=== PATIENT | female | born 1965 | race Caucasian/White ===

== ENCOUNTER 2021-03-24 12:40 | Emergency (ER) | payer OTHER ==
[~2021-03-24] VITALS: Ht 160 cm; Wt 90.7 kg
[2021-03-24] MEDS ORDERED: JANUVIA25 MG PO (13:14)
[2021-03-24] MEDS ORDERED: GLYBURIDE 5 MG T5 M1 PO (13:15)
[2021-03-24] MEDS ORDERED: ASA81BEC PO (13:15)
[2021-03-24] MEDS ORDERED: COZAAR 25 MG TA25 MG PO (13:15)
[2021-03-24] MEDS ORDERED: METFORMIN HCL500 MG PO (13:15)
[2021-03-24] MEDS ORDERED: FLEXERIL PO (14:02)
[2021-03-24] MEDS ORDERED: HYDROCODON-ACE1 EAC7 PO ×2 (14:02→14:04)
[2021-03-24 14:19] VITALS: BP 176/88
== END 2021-03-24 14:20 | disposition home or self-care (01) ==
LOC: M.ERS 12:40
DX: M25.561 Pain in right knee (principal); E11.9 Type 2 diabetes mellitus without complications; E78.5 Hyperlipidemia, unspecified; Z79.2 Long term (current) use of antibiotics; Z79.82 Long term (current) use of aspirin; Z79.899 Other long term (current) drug therapy; Z88.0 Allergy status to penicillin; Z91.09 Other allergy status, other than to drugs and biological substances